=== PATIENT | female | born 1965 | race Caucasian/White ===

== ENCOUNTER 2017-12-11 13:32 | Emergency (ER) | payer OTHER ==
[~2017-12-11] VITALS: Ht 167.6 cm; Wt 72.0 kg
[~2017-12-11 13:32] MED LIST: BENA10 PO; CARD120C4 PO; CYCL-36 PO; DICL75 PO; DILTSR120 PO; HYDR-3533 PO
[2017-12-11 13:36] VITALS: BP 138/74; PULSE 89; RESP 16; TEMP 99.3; O2SAT 98
[2017-12-11] MEDS ORDERED: DILT120C50 PO (13:57)
[2017-12-11] MEDS ORDERED: b/p med (13:57)
[2017-12-11] MEDS ORDERED: CEPH-460 PO (15:11)
--- NOTE | 2017-12-11 15:11 | PD ---
HPI Chief Complaint: Laceration/Skin Injury Time Seen by Provider: 14:49 Travel History International Travel<30 days: No Contact w/Intl Traveler<30days: No Traveled to known affect area: No History of Present Illness HPI This is a 52-year-old female here with a laceration to her left hand caused by electric hedge tremors while at work today. Laceration is between the first and second digit webspace. She denies altered sensation or weakness of the digits. Symptom severity is mild. No aggravating or alleviating factors. PFSH Past Medical History Arthritis: Yes Diabetes: No Diminished Hearing: No Hypertension: Yes Immunizations Current: Yes ?: Not Menopausal: Yes Past Surgical History Section: Yes (X1) Other Surgery: Yes (UMBILICAL HERNIA REPAIR) Social History Alcohol Use: No Tobacco Use: No (QUIT: 2010) Substance Use: No Allergies-Medications (Allergen,Severity, Reaction): Coded Allergies: acetaminophen (Unverified Allergy, Severe, hives, 12/11/17) codeine (Unverified Allergy, Severe, hives, 12/11/17) meperidine (Unverified Allergy, Severe, itchy, 12/11/17) propoxyphene (Unverified Allergy, Severe, hives, 12/11/17) Reported Meds & Prescriptions Reported Meds & Active Scripts Active Reported [b/p med] Diltiazem CD 24 HR 120 Mg Caper 120 Mg PO DAILY Review of Systems Except as stated in HPI: all other systems reviewed are Neg General / Constitutional: No: Fever Eyes: No: Visual changes HENT: No: Headaches Cardiovascular: No: Chest Pain or Discomfort Respiratory: No: Shortness of Breath Physical Exam Narrative GENERAL: Alert and well-appearing 52-year-old female SKIN: Warm and dry. HEAD: Normocephalic. EYES: No injection or drainage. NECK: Supple CARDIOVASCULAR: Regular rate and rhythm without murmurs, gallops, or rubs. RESPIRATORY: Breath sounds equal bilaterally. No accessory muscle use. GASTROINTESTINAL: Abdomen soft, non-tender, nondistended. MUSCULOSKELETAL: No cyanosis, or edema. Left hand: 1.5 centimeter V-shaped flap lack to the webspace of the thumb and index finger. No tendon or vascular injury identified. Wound was moderately contaminated. No foreign body visualized. Patient has normal sensation in the thumb and index finger. She has full range of motion against resistance. Good coloration. Brisk cap refill. Data Data Last Documented VS Vital Signs Date Time Temp Pulse Resp B/P (MAP) Pulse Ox O2 Delivery O2 Flow Rate FiO2 12/11/17 13:36 99.3 89 16 138/74 (95) 98 MDM Medical Decision Making Medical Screen Exam Complete: Yes Emergency Medical Condition: Yes Differential Diagnosis Hand laceration, tendon injury, retained foreign body Narrative Course 52-year-old female here with laceration to the left hand. The extremity is neurovascularly intact. No tendon injury visualized or suspected. The bony tenderness. Wound was thoroughly irrigated. Laceration repair performed. Patient tolerated procedure well. She will be put on prophylactic antibiotics for contaminated wound. She is to follow-up in 2 days for wound recheck. Procedures Procedure Narrative LACERATION LOCATION: Left hand webspace between first and second digit LENGTH: 1.5 cm NUMBER OF STITCHES/PRESTON: 4 REPAIR: The area of the laceration was prepped with Betadine and sterilely draped. The laceration was infiltrated with 1% lidocaine plain. The wound was copiously irrigated and explored without evidence of foreign body, tendon injury or neurovascular injury. The wound was closed using 3-0 Ethilon. This was a single layer repair. A sterile dressing was applied. The patient was advised to keep the dressing clean and dry. Patient tolerated the procedure well. Diagnosis Primary Impression: Hand laceration Qualified Codes: S61.412A - Laceration without foreign body of left hand, initial encounter Referrals: Primary Care Physician Additional Instructions: Sutures need to be removed in 7-10 days. Do not submerge the wound in dirty water. Keep the area covered with a clean dry dressing. Antibiotics as directed. Return if you have new or worsening symptoms Scripts Cephalexin (Keflex) 500 Mg Capsule 500 MG PO Q6H for Infection for 7 Days, #28 CAP 0 Refills Prov: Bing Zazueta 12/11/17 Disposition: 01 DISCHARGE HOME Condition: Stable Bing Zazueta December 11, 2017 15:11
== END 2017-12-11 15:25 | disposition home or self-care (01) ==
LOC: PHEFT 13:32
DX: S61.412A Laceration without foreign body of left hand, initial encounter (principal); M19.90 Unspecified osteoarthritis, unspecified site; I10 Essential (primary) hypertension; W31.89XA Contact with other specified machinery, initial encounter; Y99.0 Civilian activity done for income or pay; Z87.891 Personal history of nicotine dependence; Z88.6 Allergy status to analgesic agent; Z88.5 Allergy status to narcotic agent; Z88.8 Allergy status to other drugs, medicaments and biological substances
CPT/HCPCS: 12001